=== PATIENT | female | born 1940 | race Caucasian/White ===

== ENCOUNTER 2018-06-23 11:45 | Emergency (ER) | payer MEDICARE, OTHER ==
[~2018-06-23] VITALS: Ht 154.9 cm; Wt 88.6 kg
[2018-06-23 11:48] VITALS: Ht 154.9 cm; Wt 88.6 kg
[2018-06-23] MEDS ORDERED: OFLO5DRO7 LEFT EAR (14:13)
[2018-06-23 14:18] VITALS: BP 137/81; PULSE 79; RESP 19
--- NOTE | 2018-06-23 14:20 | ERD ---
ER Documentation Chief Complaint Chief Complaint LEFT EAR PAIN HPI 78-year-old female presents for left ear pain times 3 days. The pain is rated to be 6 out of 10. She states that she has some watery discharge from the ear and there is a popping sensation. Patient does have decreased hearing bilaterally and was started on the hearing aid about 2 weeks ago. Past medical history of hypertension. No allergies to medication. She denies any fevers or chills per denies nausea vomiting. She also denies dizziness. ROS All systems reviewed and are negative except as per history of present illness. Medications Home Meds Active Scripts Ofloxacin Otic (Ofloxacin Otic) 5 Ml Drops, 5 DROP LEFT EAR BID for ear drum perforation for 10 Days, #1 BOTTLE Prov:SANA MEEHAN DO 06/23/18 PMhx/Soc History of hypertension Medical and Surgical Hx: pt denies Surgical Hx Hx Alcohol Use: No Hx Substance Use: No Hx Tobacco Use: No Smoking Status: Never smoker Physical Exam Vitals Vital Signs Date Temp Pulse Resp B/P (MAP) Pulse Ox O2 O2 Flow FiO2 Time Delivery Rate 06/23/18 98.4 67 19 157/67 99 11:48 (97) Physical Exam Const: No acute distress Head: Atraumatic Eyes: Normal Conjunctiva ENT: Left tympanic membrane with small perforation, no active infection noted, nose and mouth examination normal. Neck: Full range of motion. No meningismus. Resp: Clear to auscultation bilaterally Cardio: Regular rate and rhythm, no murmurs Skin: No petechiae or rashes Ext: No cyanosis, or edema Neur: Awake and alert Psych: Normal Mood and Affect Procedures/MDM Medical Decision Making: Differential diagnosis includes but not limited to tympanic membrane perforation, otitis media, otitis externa Patient appeared well on physical exam. Physical examination revealed a small perforation over the left tympanic membrane. Patient given prescription for otic antibiotic drops and instructions to keep water out of the left ear. Patient advised to follow with ENT appointment with ENT in a few days.. Patient's daughter states that the patient does have a Patient advised to follow up with PCP in 1-2 days. Patient advised to return to ED for new or worsening symptoms. Patient stable on discharge from the ED. Disclaimer: Inadvertent spelling and grammatical errors are likely due to EHR/dictation software use and do not reflect on the overall quality of patient care. Also, please note that the electronic time recorded on this note does not necessarily reflect the actual time of the patient encounter. Departure Diagnosis: Primary Impression: Tympanic membrane perforation Laterality: left Qualified Codes: H72.92 - Unspecified perforation of tympanic membrane, left ear Condition: Fair Patient Instructions: Eardrum Rupture (Perforation) Referrals: [facility] YOU HAVE RECEIVED A MEDICAL SCREENING EXAM AND THE RESULTS INDICATE THAT YOU DO NOT HAVE A CONDITION THAT REQUIRES URGENT TREATMENT IN THE EMERGENCY DEPARTMENT. FURTHER EVALUATION AND TREATMENT OF YOUR CONDITION CAN WAIT UNTIL YOU ARE SEEN IN YOUR DOCTORS OFFICE WITHIN THE NEXT 1-2 DAYS. IT IS YOUR RESPONSIBILITY TO MAKE AN APPOINTMENT FOR FOLOW-UP CARE. IF YOU HAVE A PRIMARY DOCTOR --you should call your primary doctor and schedule an appointment IF YOU DO NOT HAVE A PRIMARY DOCTOR YOU CAN CALL OUR PHYSICIAN REFERRAL HOTLINE AT IF YOU CAN NOT AFFORD TO SEE A PHYSICIAN YOU CAN CHOSE FROM THE FOLLOWING [facility] CLINICS [facility] [address] [facility] [address] [facility] [facility] [address] [facility] [facility] [address] [facility] [facility] [address] [facility]. [facility]. [address] Additional Instructions: Call your primary care doctor TOMORROW for an appointment during the next 1-2 days.See the doctor sooner or return here if your condition worsens before your appointment time. follow up with ENT SANA MEEHAN DO Jun 23, 2018 14:20
== END 2018-06-23 14:18 | disposition home or self-care (01) ==
LOC: FTE 11:45
DX: H72.92 Unspecified perforation of tympanic membrane, left ear (principal); I10 Essential (primary) hypertension
CPT/HCPCS: 99283